=== PATIENT | female | born 1955 | race Caucasian/White ===

== ENCOUNTER 2019-10-08 08:54 | Outpatient (CLI) | payer MEDICARE, OTHER, SELFPAY ==
--- NOTE | ~2019-10-08 | DEXA_ITS ---
Bone Density Report Name: Diana Mcbride Age: 64 Sex: Female Ethnicity: White Date of : 1955 Indication: postmenopausal; height loss; cancer; hysterectomy; Referring Provider: Annette Deluca Study: Bone densitometry was performed. Exam Date: October 08, 2019 Accession number: [id number] Bone Density: Region BMD T-score Z-score Classification AP Spine (L1-L4) 0.904 -1.3 0.6 Osteopenia Femoral Neck (Left) 0.679 -1.5 0.1 Osteopenia Total Hip (Left) 0.866 -0.6 0.7 Normal Total Hip Bilateral Avg 0.867 -0.6 0.7 Normal Femoral Neck (Right) 0.740 -1.0 0.6 Normal Total Hip (Right) 0.867 -0.6 0.7 Normal World Health Organization criteria for BMD impression classify patients as: Normal (T-score at or above -1.0), Osteopenia (T-score between -1.0 and -2.5), or Osteoporosis (T-score at or below -2.5). 10-year Fracture Risk(1): Major Osteoporotic Fracture 8.4% Hip Fracture 0.9% Reported Risk Factors: [place] (), Neck BMD=0.679, BMI=37.9 (1) FRAX(R) Version 3.08. Fracture probability calculated for an untreated patient. Fracture probability may be lower if the patient has received treatment. Clinical Information Provided by Patient: Has the following medical conditions: Cancer, Hysterectomy Patient maximum height was 68.5 Menopause Age: 48 No regular weight bearing exercise Onset of menses at age 11 Number of children 2 Impression: The patient has low bone mass, based on the Left Femoral Neck T-score. The patient has an estimated ten-year risk of hip fracture of 0.9% and an estimated ten-year risk of major fracture of 8.4%, based on the WHO FRAX algorithm. Discussion: BONE DENSITY IS LOW AT ONE OR MORE SKELETAL SITES. This patient's lowest T-score is low at one or more skeletal sites. It meets the World Health Organization's (WHO) criteria for ?low bone mass? (T-score between -1.0 and -2.5). The patient's 10-year risk of fracture as calculated by FRAX is less than the threshold where pharmacological therapy is recommended by the National Osteoporosis Foundation (NOF). However, all treatment decisions require clinical judgment and consideration of individual patient factors, including patient preferences, comorbidities, previous drug use, risk factors not captured in the FRAX model (e.g., frailty, falls, vitamin D deficiency, increased bone turnover, interval significant decline in bone density) and possible under or overestimation of fracture risk by FRAX. The patient should follow a healthful lifestyle (good nutrition with adequate calcium and vitamin D, and appropriate weight-bearing exercise). Follow-Up: Consider repeating this study in 2 to 3 years to reassess this patient's status, or sooner if there is some new clinical indication. Reported by: JOSE on 10/08/2019 9:17:00 AM.
== END 2019-10-08 08:55 | disposition home or self-care (01) ==
PROVIDERS: PCP Family Medicine; Visit Provider Student in an Organized Health Care Education/Training Program
DX: Z78.0 Asymptomatic menopausal state (principal); M85.88 Other specified disorders of bone density and structure, other site; M85.852 Other specified disorders of bone density and structure, left thigh
CPT/HCPCS: 77080

== ENCOUNTER 2020-02-27 11:40 | Outpatient (CLI) | payer MEDICARE, OTHER, SELFPAY ==
--- NOTE | ~2020-02-27 | MM_ITS ---
EXAMINATION: MM screen RT diag LT w nayely HISTORY: Screening right and diagnostic left mammogram, history of left breast cancer status post lum pectomy TECHNIQUE: Craniocaudal and mediolateral oblique 3-D tomosynthesis images were obtained and synthetic 2-D images were generated. Additional 3-D tomosynthesis mediolateral tomosynthesis image of the left breast and left breast spot compression views are also obtained. CAD analysis was submitted and inte rpreted. COMPARISON: 06/26/2019, 06/04/2019, 05/19/2018, 12/21/2017 BREAST PARENCHYMAL COMPOSITION: There are scattered areas of fibroglandular density. FINDINGS: There are stable lumpectomy changes in the upper outer quadrant of the left breast. There i s no evidence of suspicious mass, calcification, or architectural distortion to suggest malignancy in either breast. There has been no suspicious interval change. IMPRESSION: 1. No mammographic evidence of malignancy. 2. Recommend routine screening mammography in one year. BI-RADS Category 2: Benign finding(s). Reviewed, dictated and finalized at location A.
== END 2020-02-27 11:41 | disposition home or self-care (01) ==
LOC: ANHIMG 11:42
PROVIDERS: PCP Family Medicine; Visit Provider Internal Medicine Hematology & Oncology
DX: Z12.31 Encounter for screening mammogram for malignant neoplasm of breast (principal); C50.412 Malignant neoplasm of upper-outer quadrant of left female breast; Z17.0 Estrogen receptor positive status [ER+]
CPT/HCPCS: 77063; 77065; 77067

== ENCOUNTER 2021-08-14 22:01 | Emergency (ER) | payer MEDICARE, OTHER, SELFPAY ==
[2021-08-14 22:13] VITALS: BP 180/78; PULSE 83; RESP 20; TEMP 37.1; O2SAT 96
--- NOTE | 2021-08-14 22:51 | PC.NURSE ---
Pt at intake desk stating her pain has subsided and she has an appointment scheduled with her pmd tomorrow so she is going to go home if pain returns she will be back. pt ambulated out of ED with steady gait. no distress noted,
== END 2021-08-15 04:40 | disposition left against medical advice (07) ==
LOC: ANHED 23:08
DX: R10.9 Unspecified abdominal pain (principal)
CPT/HCPCS: 99199

== ENCOUNTER 2021-08-15 10:42 | Outpatient (CLI) | payer MEDICARE, OTHER, SELFPAY ==
--- NOTE | ~2021-08-15 | CT_ITS ---
EXAMINATION: CT abdomen pelvis wo con DATE: 08/15/2021 10:59 INDICATION: Right lower quadrant abdominal pain. TECHNIQUE: Computed tomography (CT) of the abdomen and pelvis was performed without intravenous contr ast. Automated exposure control and iterative reconstruction technique were employed. The dose-length product was 1077.71 mGy-cm. COMPARISON: None. FINDINGS: The visualized portions of the lung bases demonstrate mild atelectasis. No pleural effusion . The heart size is normal. No pericardial effusion. There are coronary artery calcifications. There is a small sliding hiatal hernia. There are at least 7 ill-defined hypoattenuated masses in the liver measuring up to 3.7 cm in left hepatic lobe. There is fat stranding around posterior inferior right hepatic lobe. There are gallstones in the gallbladder, which is normal in size. The spleen, pancreas, and adrenal glands are normal. 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 There is no urolithiasis. There are no dilated loops of bowel. The appendix is normal. The re are no pathologically enlarged lymph nodes. There is no free intraperitoneal fluid. There is mild thoracal lumbar spondylosis. There is mild chronic anterior wedging of multiple thoracic vertebral tori dies. IMPRESSION: 1. Multiple ill-defined liver masses suspicious for metastatic disease. Ultrasound-guided core biopsy is recommended. 2. Fat stranding around the posterior inferior aspect of right hepatic lobe suspicious for hemorrhage from one of the masses. Reviewed, dictated and finalized at location A. LOPMENT TECHNOLOGIST IMPRESSION: 1. Multiple ill-defined liver masses suspicious for metastatic disease. Ultraso und-guided core biopsy is recommended. 2. Fat stranding around the posterior inferior aspect of right hepatic lobe debbie picious for hemorrhage from one of the masses.
== END 2021-08-15 10:43 | disposition home or self-care (01) ==
LOC: ANHIMG 10:47
PROVIDERS: PCP Family Medicine; Visit Provider Physician Assistant
DX: R10.31 Right lower quadrant pain (principal); K76.89 Other specified diseases of liver
CPT/HCPCS: 74176